=== PATIENT | female | born 1940 | race Caucasian/White ===

== ENCOUNTER 2017-12-24 13:46 | Emergency (ER) | payer OTHER, MEDICAID ==
[~2017-12-24] VITALS: Ht 162.6 cm; Wt 63.5 kg
[~2017-12-24 13:46] MED LIST: ADULT LOW DOSE81 MG PO; BENTYL10 MG PO; EXFORGE; GABAPENTIN 100100 MG; GLUCOPHAGE XR500 MG PO; HYZAAR 100-251 EACH PO; KLOR-CON 1010 MEQ PO; LEVAQUIN 500 M500 M2; LEVOTHROID; LOPRESSOR HCT1 EAC1 PO; LOVASTAT40; MACROBID 100 M100 M1 PO; MUCINEX TA600 MG/TA2 PO; NEXIUM; NORCO 5-325 TA1 EACH PO; NORFLEX100 MG PO; OXYBUTYNIN 5 MG5 M1; TOPROL XL100 MG PO; TRICOR48 MG PO; ULTRAM 50MG TAB50 MG PO; VITAMIN D1000 UNI1; ZOCOR 20 MG TAB20 M1; ZOFRAN ODT4 MG; ZOFRAN ODT4 MG PO
[2017-12-24 13:55] VITALS: BP 111/68
[2017-12-24 14:08] LABS: ABSOLUTE LYMPHOCYTES 1.3 thou/uL (0.8-5.3); ABSOLUTE MONOCYTES 0.3 thou/uL (0.0-1.2); ABSOLUTE NEUTROPHILS 6.1 thou/uL (1.6-8.1); BASOPHILS 0.4 %; EOSINOPHILS 0.6 %; HEMATOCRIT 41.5 % (37.0-47.0); HEMOGLOBIN 14.1 gm/dL (12.0-15.0); LYMPHOCYTES 16.2 %; MCH 31.2 pg (26.0-34.0); MCV 91.9 fL (80.0-100.0); MONOCYTES 4.3 %; MPV 8.9 fl. (7.2-11.1); NUCLEATED RBCS 0 /100WBC; PLATELET COUNT* 187 thou/uL (150-400); POLYS 78.5 %; RBC 4.52 mil/uL (4.20-5.00); RDW-CV 13.1 % (10.5-14.5); WBC 7.8 thou/uL (4.0-11.0)
[2017-12-24 14:15] LABS: ANION GAP 5 mmol/L (7-16); BUN 15 mg/dL (7-18); CALCIUM 9.2 mg/dL (8.5-10.1); CHLORIDE 103 mmol/L (98-107); CO2 29 mmol/L (21-32); CREATININE 1.1 mg/dL (0.6-1.3); GLUCOSE 235 mg/dL (70-99); POTASSIUM 4.1 mmol/L (3.5-5.1); SODIUM 137 mmol/L (136-145)
[2017-12-24 14:22] LABS: ALBUMIN 3.5 g/dL (3.4-5.0); ALKALINE PHOSPHATASE 133 U/L (46-116); LIPASE 134 U/L (73-393); SGOT 16 U/L (15-37); SGPT 23 U/L (30-65); TOTAL BILIRUBIN 0.6 mg/dL (<0.1-1.0); TOTAL PROTEIN 7.2 g/dL (6.4-8.2); TROPONIN-I LEVEL <0.06 ng/mL (<0.06)
[2017-12-24 15:16] LABS: URINE BILIRUBIN NEGATIVE (Negative); URINE BLOOD NEGATIVE (Negative); URINE CLARITY CLEAR; URINE COLOR YELLOW; URINE GLUCOSE-RANDOM NEGATIVE (Negative); URINE KETONES NEGATIVE (Negative); URINE LEUKOCYTES-REFLEX NEGATIVE (Negative); URINE NITRITE-REFLEX NEGATIVE (Negative); URINE PROTEIN NEGATIVE (Negative); URINE SPECIFIC GRAVITY 1.025 (1.005-1.030)
[2017-12-24 16:43] VITALS: BP 147/73
--- NOTE | 2017-12-24 16:43 | NUR ---
DR TAN REVIEWED PT'S HOME MEDS BEFORE DISCHARGE.
--- NOTE | 2017-12-26 13:30 | EKG ---
[place] [address] ELECTROCARDIOGRAM REPORT Name: KWADWOANY OLMEDO Room: [facility]#: [id number] Admission: 12/24/17 Attend Phys: Discharge: 12/24/17 Date of : 38 Report #: [id number] THIS REPORT FOR: //name// [facility] ED Test Date: 2017-12-24 Test Time: 13:52:05 Pat Name: ANY BURKETT Department: Room: Gender: F Natural Resources Instructor: Vivek MCLEOD : 1940 Requested By: Junior Hunt Order Number: [id number] MD: Julius Ceron Measurements Intervals [place] Rate: 74 P: 2 CT: 147 QRS: -67 QRSD: 103 T: QT: 463 QTc: 514 Interpretive Statements Sinus rhythm Left anterior fascicular block Abnormal R-wave progression, early transition Borderline repolarization abnormality Prolonged QT interval Compared to ECG 10/13/2015 19:59:36 Left anterior fascicular block now present Prolonged QT interval now present Right ventricular hypertrophy no longer present Myocardial infarct finding no longer present Electronically Signed On 12-26-2017 13:30:28 CDT by Julius Ceron [email or web address] <ELECTRONICALLY SIGNED> By: Julius Ceron MD, FAC 12/26/17 1330 1352 1352 Julius Ceron MD, [facility] /EPI
== END 2017-12-24 16:47 | disposition home or self-care (01) ==
LOC: M.ERS 13:46 → M.TBA-ER 15:22 → M.ERS 15:22
PROVIDERS: Emergency Medicine Emergency Medical Services
DX: I95.1 Orthostatic hypotension (principal); E11.9 Type 2 diabetes mellitus without complications; Z88.8 Allergy status to other drugs, medicaments and biological substances; Z88.6 Allergy status to analgesic agent; Z88.1 Allergy status to other antibiotic agents; Z91.041 Radiographic dye allergy status; Z88.5 Allergy status to narcotic agent; Z88.0 Allergy status to penicillin; Z91.013 Allergy to seafood; Z90.49 Acquired absence of other specified parts of digestive tract; Z90.710 Acquired absence of both cervix and uterus

== ENCOUNTER 2018-06-26 20:33 | Inpatient (IN) | payer OTHER, MEDICAID ==
[~2018-06-26] VITALS: Ht 162.6 cm; Wt 67.2 kg
[~2018-06-26 20:33] MED LIST changes: -GABAPENTIN 100100 MG; +GABAPENTIN 100100 MG PO; -LEVOTHROID; -NEXIUM; +NEXIUM40 MG PO; +SYNTHROID75 MCG PO; -VITAMIN D1000 UNI1; +VITAMIN D1000 UNI1 PO
[2018-06-26 20:37] VITALS: BP 192/97
[2018-06-26] MEDS ORDERED: NORVASC5 MG PO (20:46)
[2018-06-26] MEDS ORDERED: DOK100 M1 PO (20:46)
[2018-06-26] MEDS ORDERED: JANUVIA100 MG PO (20:46)
[2018-06-26] MEDS ORDERED: HYDRALAZINE 2525 MG PO (20:47)
[2018-06-26] MEDS ORDERED: CRESTOR20 MG PO (20:48)
[2018-06-26] MEDS ORDERED: PROAIR HFA8.5 GM INH (20:48)
[2018-06-26] MEDS ORDERED: FLUCONAZOLE 10100 MG PO (20:48)
[2018-06-26 20:58] LABS: ABSOLUTE BASOPHILS 0.1 thou/uL (0.0-0.2); ABSOLUTE EOSINOPHILS 0.1 thou/uL (0.0-0.7); ABSOLUTE LYMPHOCYTES 2.3 thou/uL (0.8-5.3); ABSOLUTE MONOCYTES 0.6 thou/uL (0.0-1.2); BASOPHILS 0.7 %; EOSINOPHILS 0.4 %; HEMATOCRIT 44.3 % (37.0-47.0); HEMOGLOBIN 14.5 gm/dL (12.0-15.0); MCH 29.4 pg (26.0-34.0); MCHC 32.7 g/dL (28.0-37.0); MCV 89.8 fL (80.0-100.0); MONOCYTES 5.1 %; MPV 8.8 fl. (7.2-11.1); NUCLEATED RBCS 0 /100WBC; PLATELET COUNT* 255 thou/uL (150-400); POLYS 74.8 %; RBC 4.94 mil/uL (4.20-5.00); RDW-CV 13.5 % (10.5-14.5); WBC 12.1 thou/uL (4.0-11.0)
[2018-06-26 21:05] LABS: APTT 19.6 Seconds (25.0-31.3); PROTIME 9.9 Seconds (9.20-11.50)
[2018-06-26 21:22] LABS: ALBUMIN 3.8 g/dL (3.4-5.0); CALCIUM 10.4 mg/dL (8.5-10.1); CK-MB MASS 0.9 ng/mL (<0.5-3.6); MAGNESIUM 1.6 mg/dL (1.8-2.4); POTASSIUM 4.6 mmol/L (3.5-5.1); TOTAL BILIRUBIN 0.3 mg/dL (<0.1-1.0); TOTAL PROTEIN 7.7 g/dL (6.4-8.2); TROPONIN-I LEVEL 0.06 ng/mL (<0.06)
--- NOTE | 2018-06-26 22:48 | NUR ---
REPORT TAKEN FROM DEMOND, WAITING FOR PATIENT'S ARRIVAL.
[2018-06-26 22:50] VITALS: BP 197/95
[2018-06-26 23:00] VITALS: BP 197/100
[2018-06-27] VITALS (7 sets, daily range): BP systolic 142–171; BP diastolic 59–86
[2018-06-27] MEDS ORDERED: ADVAIR HFA 230M12 GM INH ×2 (00:54)
--- NOTE | 2018-06-27 04:35 | NUR ---
PATIENT RESTED IN BED, NO ACUTE CHANGES. PATIENT DENIES PAIN BUT STATES "I HAVE DISCOMFORT NOT PAIN.". PATIENT IS NOT SHOWING SIGNS OF DISTRESS. FALL PRECAUTIONS IN PLACE, CALL LIGHT WITH IN REACH, HOURLY ROUNDING OBSERVED, BED ALARM ON.
--- NOTE | 2018-06-27 11:19 | NUR ---
MET WITH PT TO DISCUSS HOME SITUATION/DC PLANNING. PT'S NIECE/VIKTORIYA CARMEN IN ROOM ALSO. 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 SHE IS THERE 3.5HR/DAYK-7 DAYS/WEEK. 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 VIKTORIYA ASSISTS WITH LUGGAGE MAKER, SHOPPING, ETC. PT USES WALKER OR CANE AND SHOWER SEAT. SHE HAS NOT HAD HH BUT WOULD LIKE TO HAVE IT AT DC. DISCUSSED OPTIONS AND CHOSE [facility]. PT FOLLOWS WITH DR WESTBROOK IN [place]. GAVE PT ED AND INFO ON DPOA. SHE WILL DISCUSS WITH FAMILY. CM TO FOLLOW
--- NOTE | 2018-06-27 17:08 | 2DMMODE ---
[place] [address] 2 D/M-MODE ECHOCARDIOGRAM Name: ANY BURKETT Room: [address] IN [facility]#: [id number] Admission: 06/26/18 Attend Phys: Dmitry Galvez Discharge: Date of : 38 Date of Service: 06/27/18 1708 Report #: [id number] THIS REPORT FOR: //name// APPROVED REPORT Study performed: 06/27/2018 11:23:13 EXAM: Comprehensive 2D, Doppler, and color-flow Echocardiogram Patient Location: In-Patient Room #: [facility] BSA: 1.70 HR: 77 bpm BP: 161/85 mmHg Other Information Study Quality: Good Indications Chest Pain 2D Dimensions IVSd: 11.05 (7-11mm) LVOT Diam: 20.18 (18-24mm) LVDd: 42.06 mm PWd: 9.92 (7-11mm) Ascending Ao: 29.95 (22-36mm) LVDs: 24.17 (25-40mm) Aortic Root: 27.92 mm Volumes Left Atrial Volume (Systole) LA ESV Index: 15.70 mL/m2 Aortic Valve AoV Peak Ney.: 1.36 m/s AO Peak Gr.: 7.36 mmHg LVOT Max P.69 mmHg AO Mean Gr.: 4.15 mmHg LVOT Mean P.45 mmHg LVOT Max V: 1.08 m/s AO V2 VTI: 29.70 cm LVOT Mean V: 0.72 m/s MOSHE (VTI): 2.25 cm2 LVOT V1 VTI: 20.86 cm Mitral Valve E/A Ratio: 0.64 MV Decel. Time: 248.63 ms MV E Max Ney.: 0.63 m/s MV PHT: 72.10 [place] [address] 2 D/M-MODE ECHOCARDIOGRAM Name: KWADWO,ANYKimo OLMEOD Room: [address] IN .R.#: [id number] Admission: 06/26/18 Attend Phys: Dmitry Galvez Discharge: Date of : 38 Date of Service: 06/27/18 1708 Report #: [id number] MVA (PHT): 3.05 cm2 TDI E/Lateral E': 7.88 E/Medial E': 9.00 Medial E' Ney.: 0.07 m/s Lateral E' Ney.: 0.08 m/s Pulmonary Valve PV Peak Ney.: 1.07 m/s PV Peak Gr.: 4.60 mmHg Tricuspid Valve RAP Estimate: 5.00 mmHg TR Peak Gr.: 18.02 mmHg RVSP: 23.02 mmHg PA Pressure: 23.02 mmHg Left Ventricle The left ventricle is normal size. There is normal LV segmental wall motion. There is normal left ventricular wall thickness. Left ventricular systolic function is normal. The left ventricular ejection fraction is within the normal range. LVEF is 60%. Grade I - abnormal relaxation pattern. Right Ventricle The right ventricle is normal size. The right ventricular systolic function is normal. Atria The left atrium size is normal. The right atrium size is normal. Aortic Valve Aortic valve is mildly calcified. No aortic regurgitation is present. There is no aortic valvular stenosis. Mitral Valve The mitral valve is normal in structure. Mild mitral regurgitation. No evidence of mitral valve stenosis. Tricuspid Valve The tricuspid valve is normal in structure. Mild tricuspid regurgitation. Pulmonic Valve The pulmonary valve is normal in structure. There is no pulmonic valvular [place] [address] 2 D/M-MODE ECHOCARDIOGRAM Name: ANY BURKETT Room: [address] [place] [facility]#: [id number] Admission: 06/26/18 Attend Phys: Dmitry Galvez Discharge: Date of : 38 Date of Service: 06/27/18 1708 Report #: [id number] Great Vessels The aortic root is normal in size. IVC is normal in size and collapses >50% with inspiration. Pericardium There is no pericardial effusion. <Conclusion> The left ventricle is normal size. There is normal left ventricular wall thickness. Left ventricular systolic function is normal. The left ventricular ejection fraction is within the normal range. LVEF is 60%. Grade I - abnormal relaxation pattern. The right ventricle is normal size. The left atrium size is normal. Aortic valve is mildly calcified. No aortic regurgitation is present. There is no aortic valvular stenosis. The mitral valve is normal in structure. Mild mitral regurgitation. The tricuspid valve is normal in structure. IVC is normal in size and collapses >50% with inspiration. There is no pericardial effusion. There is normal LV segmental wall motion. <ELECTRONICALLY SIGNED> By: Dimitry Gupta MD, FACC 06/27/181707 07 07 Dimitry Gupta MD, FACC /INF
--- NOTE | 2018-06-27 18:34 | CARDNUC ---
[place] [address] CARDIAC NUCLEAR IMAGING REPORT Name: NESSA BURKETT Room: [address] IN [facility]#: [id number] Admission: 06/26/18 Attend Phys: Dmitry Galvez Discharge: Date of : 38 Date of Service: 06/27/18 1834 Report #: [id number] THIS REPORT FOR: //name// APPROVED REPORT Study performed: 06/27/2018 10:10:00 Indication: Chest pain Patient Location: In-Patient Room #: [facility] Stress Tech: Ольга Patel Stress Nurse: Nessa Salcedo RN Ht: 5 ft 4 in Wt: 143 lbs BSA: 1.70 m2 BMI: 24.54 Medical History Medical History: hyperlipidemia, hypertension, pvd Medications: atorvastatin, amlodipine, asa 81, hctz, losartan Allergies: zolpidem, fexofenarine, pcn, sulfa, morphine, codiene, iodine Cardiac Risk Factors: age, hyperlipidemia, hypertension, pvd, diabetes Exercise History: Sedentary Resting Data Rest SPECT myocardial perfusion imaging was performed in supine position 45 minutes following the intravenous injection of 10.9 mCi of Tc-99m Sestamibi. Time of rest injection: 1440 Date: 06/27/2018 The images were gated to evaluate regional wall motion and calculate left ventricular ejection fraction. Administration Route: IV Administration Site: Left Hand Pharmacologic Stress Pharmacologic stress test was performed by injecting Regadenoson 0.4 mg IV push over 10-15 seconds immediately followed by the intravenous injection of 36 mCi of Tc-99m Sestamibi. Time of stress injection: 1615 Date: 06/27/2018 Administration Route: IV Administration Site: Left Hand Gated Stress SPECT was performed 45 minutes [place] [address] CARDIAC NUCLEAR IMAGING REPORT Name: NESSA BURKETT Room: [address] IN ..#: [id number] Admission: 06/26/18 Attend Phys: Dmitry Galvez Discharge: Date of : 38 Date of Service: 06/27/18 1834 Report #: [id number] The images were gated to evaluate regional wall motion and calculate left ventricular ejection fraction. Stress Test Details Stress Test: Pharmacologic stress testing performed using 0.4 mg of regadenoson per 5 mL given IV over 10 seconds. Reason for pharmacologic stress test: physical limitation. HR Max Heart Rate (APMHR): 142 bpm Resting HR: 101 bpm Target HR (85% APMHR): 120 bpm Max HR Achieved: 132 bpm % of APMHR: 92 Recovery HR: 120 bpm BP Resting BP: 157/54 mmHg Max BP: 172/67 mmHg Recovery BP: 157/77 mmHg ECG Resting ECG: Sinus Tachycardia Stress ECG: Sinus Tachycardia ST Change: None Arrhythmia: None Recovery ECG: Sinus Tachycardia Recovery ST Change: None Recovery Arrhythmia: None Clinical Reason for Termination: Completed protocol Exercise duration: 0 min sec Exercise capacity: 1 METs The patient tolerated Lexiscan infusion without significant symptoms. Nurse Comments pt fall risk. tolerated procedure well Stress ECG Conclusion The baseline 12-lead EKG shows sinus tachycardia without significant ST or T wave abnormality. EKGs obtained during and post Lexiscan infusion show sinus tachycardia with no significant ST or T wave changes when compared baseline. There were no stress-induced arrhythmias. Study Quality Study: [place] [address] CARDIAC NUCLEAR IMAGING REPORT Name: NESSA BURKETT Room: [address] IN [facility].#: [id number] Admission: 06/26/18 Attend Phys: Dmitry Galvez Discharge: Date of : 38 Date of Service: 06/27/18 1834 Report #: [id number] Study Data At rest, the left ventricular ejection fraction was 88%.. Post stress, the left ventricular ejection was 85%.. Perfusion There is photopenia noted in the basal portion the inferior wall that is more pronounced on rest and stress images. Wall motion in this region does appear diminished possibly signifying prior infarct. There is no evidence of stress-induced ischemia. Wall Motion Global LV systolic function is normal. There is a repeat of hypokinesis in the basal portion of the inferior wall. There is also a septal wall motion abnormality of uncertain significance. Nuclear Conclusion ECG Findings: negative for ischemia Clinical Findings: negative for ischemia Nuclear Findings: negative for ischemia Exercise Capacity: not assessed Left Ventricular Function: preserved Myocardial perfusion images show no defect to suggest ischemia. There is photopenia in the basal portion the inferior wall with associated wall motion abnormality suggesting the possibility of prior inferior wall infarct. Global LV systolic function is well-preserved. This is not a high risk study. <Conclusion> The baseline 12-lead EKG shows sinus tachycardia without significant ST or T wave abnormality. EKGs obtained during and post Lexiscan infusion show sinus tachycardia with no significant ST or T wave changes when compared baseline. There were no stress-induced arrhythmias. <ELECTRONICALLY SIGNED> By: Lamont Magallanes MD, FACC 06/27/18 1834 183 183 Lamont Magallanes MD, FACC /INF
--- NOTE | 2018-06-27 18:46 | EKG ---
[place] [address] ELECTROCARDIOGRAM REPORT Name: KWADWOANY SHARA Room: [address] ADM IN .R.#: [id number] Admission: 06/26/18 Attend Phys: Keith Mike Discharge: Date of : 38 Report #: [id number] THIS REPORT FOR: //name// [facility] ED Test Date: 2018-06-26 Test Time: 20:39:10 Pat Name: ANY BURKETT Department: Room: [facility] Gender: F Prison Guard Supervisor: : 1940 Requested By: John Pitts Order Number: [id number] MD: Lamont Magallanes Measurements Intervals [place] Rate: 83 P: 12 SD: 132 QRS: -54 QRSD: 101 T: 35 QT: 467 QTc: 549 Interpretive Statements Sinus rhythm Left anterior fascicular block Abnormal R-wave progression, early transition Borderline repolarization abnormality Prolonged QT interval Baseline wander in lead(s) II,III,aVR,aVL,aVF,V6 Compared to ECG 12/24/2017 13:52:05 No significant changes Electronically Signed On 06-27-2018 18:45:59 TREE PULLER by Lamont Magallanes [email or web address] <ELECTRONICALLY SIGNED> By: Lamont Magallanes MD, FAC 06/27/18 1845 38 38 Lamont Magallanes MD, [facility] /EPI
--- NOTE | 2018-06-27 18:47 | EKG ---
[place] [address] ELECTROCARDIOGRAM REPORT Name: KWADWOANY SHARA Room: [address] ADM IN M.R.#: [id number] Admission: 06/26/18 Attend Phys: Keith Mike Discharge: Date of : 38 Report #: [id number] THIS REPORT FOR: //name// [facility] Test Date: 2018-06-27 Test Time: 02:53:30 Pat Name: ANY BURKETT Department: Room: [address] Gender: F Radio Tower Technician: : 1940 Requested By: Junior Hunt Order Number: [id number] MD: Lamont Magallanes Measurements Intervals [place] Rate: 85 P: 9 ME: 134 QRS: -55 QRSD: 101 T: 6 QT: 412 QTc: 490 Interpretive Statements Sinus rhythm Abnormal R-wave progression, late transition Probable left ventricular hypertrophy Inferior infarct, old Compared to ECG 12/24/2017 13:52:05 Myocardial infarct finding now present Left anterior fascicular block no longer present Prolonged QT interval no longer present Electronically Signed On 06-27-2018 18:46:59 ENGINEERING SPECIALIST TECHNICIAN by Lamont Magallanes [email or web address] <ELECTRONICALLY SIGNED> By: Lamont Magallanes MD, [facility] 06/27/18 1846 2 2 Lamont Magallanes MD, [facility] /EPI
--- NOTE | 2018-06-27 18:48 | EKG ---
[place] [address] ELECTROCARDIOGRAM REPORT Name: KWADWOANY SHARA Room: [address] ADM IN M.R.#: [id number] Admission: 06/26/18 Attend Phys: Keith Mike Discharge: Date of : 38 Report #: [id number] THIS REPORT FOR: //name// [facility] Test Date: 2018-06-27 Test Time: 08:44:12 Pat Name: ANY BURKETT Department: Room: [address] Gender: F Chip Silo Tender: : 1940 Requested By: Junior Hunt Order Number: [id number] Ibeth MD: Lamont Magallanes Measurements Intervals [place] Rate: 83 P: 11 [place]: 141 QRS: -62 QRSD: 102 T: 10 QT: 425 QTc: 500 Interpretive Statements Sinus rhythm Abnormal R-wave progression, late transition Inferior infarct, old Compared to ECG 12/24/2017 13:52:05 Myocardial infarct finding now present Left anterior fascicular block no longer present Prolonged QT interval no longer present Electronically Signed On 06-27-2018 18:48:15 TOPLINE BEADING MACHINE TENDER by Lamont Magallanes [email or web address] <ELECTRONICALLY SIGNED> By: Lamont Magallanes MD, FAC 06/27/18 1848 0844 0844 Lamont Magallanes MD, [facility] /EPI
[2018-06-27 21:56] LABS: URINE BILIRUBIN NEGATIVE (Negative); URINE BLOOD NEGATIVE (Negative); URINE CLARITY CLEAR; URINE COLOR YELLOW; URINE GLUCOSE-RANDOM NEGATIVE (Negative); URINE KETONES NEGATIVE (Negative); URINE LEUKOCYTES-REFLEX 1+ (Negative); URINE NITRITE-REFLEX NEGATIVE (Negative); URINE PROTEIN NEGATIVE (Negative); URINE UROBILINOGEN 0.2 E.U./dl (0.2-1.0)
[2018-06-27 22:07] LABS: CASTS None Seen /LPF (None Seen); CRYSTALS None Seen /LPF (None Seen); MUCUS None Seen strn/LPF (None Seen); SQUAMOUS 0-3 Few /LPF (0-3); WBC CLUMPS Few (None Seen)
[2018-06-27 22:08] LABS: URINE RBC None Seen /HPF (0-2); URINE WBC-REFLEX 6-15 Few /HPF (0-5)
[2018-06-28] VITALS: BP 137/87
[2018-06-28 04:00] VITALS: BP 136/80
--- NOTE | 2018-06-28 04:51 | NUR ---
ASSUMED CARE OF PT AFTER REPORT AT 1930. PT A&OX4. VSS. PHYSICAL ASSESSMENT COMPLETED AND CHARTED. PT ON RA WITH 95% O2 SAT. PT TRACING SR/ST ON TELE. PT UP STANDBY TO RESTROOM. PT COMPLAINED OF GENERALIZED DISCOMFORT-MEDS GIVEN PER MAR. PT RESTED WELL ON BED. DENIES SOA OR CHEST PAIN. HOURLY ROUNDING OBSERVED. CALL LIGHT WITHIN REACH. BED IN LOW POSITION.
[2018-06-28 05:11] LABS: HEMATOCRIT 39.3 % (37.0-47.0); HEMOGLOBIN 13.2 gm/dL (12.0-15.0); MCHC 33.6 g/dL (28.0-37.0); MCV 89.4 fL (80.0-100.0); MPV 8.9 fl. (7.2-11.1); RBC 4.4 mil/uL (4.20-5.00); RDW-CV 13.5 % (10.5-14.5); WBC 11.7 thou/uL (4.0-11.0)
[2018-06-28 05:19] LABS: ANION GAP 8 mmol/L (7-16); BUN 11 mg/dL (7-18); CHLORIDE 105 mmol/L (98-107); CHOLESTEROL 110 mg/dL (<200); CO2 28 mmol/L (21-32); CREATININE 0.8 mg/dL (0.6-1.3); GLUCOSE 157 mg/dL (70-99); HDL CHOLESTEROL 44 mg/dL (>40); LDL CHOLESTEROL 54 mg/dL (<100); MAGNESIUM 1.9 mg/dL (1.8-2.4); POTASSIUM 3.8 mmol/L (3.5-5.1); SODIUM 141 mmol/L (136-145); TC:HDL 2.5 Ratio (Not establshd); TRIGLYCERIDE 62 mg/dL (<150); VLDL 12 mg/dL (<40)
[2018-06-28 05:20] LABS: SERUM ASSESSMENT CLEAR
[2018-06-28 07:30] VITALS: BP 135/83
--- NOTE | 2018-06-28 10:08 | NUR ---
CONTINUE TO FOLLOW, MET WITH PT. SHE NOW STATES THAT SHE HAS A DPOA AND THINKS IT IS ON FILE AT [facility] AND HER DTR/JOHAN MEMBRENO IS HER DPOA. WILL ASK STOPPER MAKER TO TRY TO OBTAIN. PT STILL WANTS TO HAVE HH AT DC WITH [facility]. ANTICIPATE DC SOON.
[2018-06-28] MEDS ORDERED: CARAFATE 1 GM TA1 G1 PO (11:45)
[2018-06-28 12:05] VITALS: BP 155/80
--- NOTE | 2018-06-28 12:17 | NUR ---
RECEIVED PT CARE 0700. SHE IS ALERT AND ORIENTED X4. VSS. SALES SUPPORT ASSOCIATE TRACING SR. SHE DENIES ANY SOA. O2 SAT 96% ON ROOM AIR. UP STANDBY ASSIST IN ROOM WITH BATHROOM PRIVILEDGES. AMBULATES WITH A WALKER. UP AMBULATING IN HALLWAY THIS AM. GAIT IS STEADY. AM ASSESSMENT CHARTED. MEDS GIVEN PER MAR. PLANNING FOR DC TO HOME THIS AFTERNOON. PATIENT UPDATED ON PLAN OF CARE. WILL CONTINUE TO MONITOR.
--- NOTE | 2018-06-28 14:52 | NUR ---
RECEIVED DISCHARGE ORDERS PER DR THAKKAR. CV OK WITH DISCHARGE TODAY. IV DISCONTINUED. CUSTODIAL ENGINEER REMOVED. EDUCATED THE PT ON F/U APPT WITH GI AND CARDIOLOGY. CONTACT INFORMATION GIVEN FOR DR COLLADO AND DR RUIZ'S OFFICES. EDUCATED ON SIGNS AND SYMPTOMS TO REPORT AND WATCH FOR. HOME HEALTH SETUP PER CASE MANAGEMENT. ALL HER BELONGINGS ARE PACKED AND LEAVING WITH THE PATIENT. NO QUESTIONS OR CONCERNS AT DISCHARGE. SHE IS LEAVING VIA WHEELCHAIR ACCOMPANIED BY NURSING STAFF AND HER POPULATION HEALTH COACH.
[2018-06-28 21:13] LABS: GLYCOHEMOGLOBIN (HGB A1C) 8.2 % (4.8-5.6)
== END 2018-06-28 14:56 | disposition home health service (06) | DRG 392 ==
LOC: M.ERS 20:33 → M.TBA-ER 21:40 → M.2W 21:40
PROVIDERS: Family Medicine; ADMIT Internal Medicine
DX: K21.9 Gastro-esophageal reflux disease without esophagitis (principal); J45.909 Unspecified asthma, uncomplicated; J44.9 Chronic obstructive pulmonary disease, unspecified; N18.3 Chronic kidney disease, stage 3 (moderate); K59.00 Constipation, unspecified; E78.5 Hyperlipidemia, unspecified; E11.22 Type 2 diabetes mellitus with diabetic chronic kidney disease; I12.9 Hypertensive chronic kidney disease with stage 1 through stage 4 chronic kidney disease, or unspecified chronic kidney disease; Z90.710 Acquired absence of both cervix and uterus; Z90.49 Acquired absence of other specified parts of digestive tract; Z88.2 Allergy status to sulfonamides; Z88.8 Allergy status to other drugs, medicaments and biological substances; Z88.6 Allergy status to analgesic agent; Z91.041 Radiographic dye allergy status; Z88.0 Allergy status to penicillin; Z91.013 Allergy to seafood; Z80.0 Family history of malignant neoplasm of digestive organs; Z79.82 Long term (current) use of aspirin; Z79.899 Other long term (current) drug therapy

== ENCOUNTER 2018-07-02 12:29 | Inpatient (IN) | payer OTHER, MEDICAID ==
[~2018-07-02] VITALS: Ht 162.6 cm; Wt 63.5 kg
--- NOTE | ~2018-07-02 | EEG ---
[address] [address] EEG STUDY REPORT Name: ANY BURKETT Room: [address] IN M.R.#: [id number] Admission: 07/02/18 Attend Phys: Andrew Castillo MD Discharge: Date of : 38 Report #: [id number] THIS REPORT FOR: //name// CC: Logan Vela Andrew Castillo DATE OF SERVICE: 07/03/2018 This patient is being evaluated for dizziness. TECHNIQUE: EEG was done by placing the electrode by standard 10-20 system of electrode placement. Both referential and sequential montages were used for recording. Background activity in this patient's EEG is about 10 Hz and 30 microvolt. The patient went to sleep that is associated with bilaterally symmetrical sleep spindle and vertex sharp wave. Photic stimulation is unremarkable. Throughout the record, no active epileptiform activity was noticed. IMPRESSION: This patient's EEG is unremarkable. Thank you very much for this referral. By: 0910 0928Kenton Cook MD /nt
--- NOTE | ~2018-07-02 | CON ---
[address] [address] CONSULTATION Name: ANY BURKETT Room: [address] IN M.R.#: [id number] Admission: 07/02/18 Attend Phys: Andrew Castillo MD Discharge: Date of : 38 Report #: [id number] THIS REPORT FOR: //name// CC: Logan Castillo DATE OF SERVICE: 07/03/2018 HISTORY OF PRESENT ILLNESS: This is a 77-year-old female patient who was evaluated by me for any neurological etiology for the patient's dizziness. The patient's history is not very clear. It looks like it is going on for some time. She has fallen down and has hit her head. When I asked her whether she passed out and lost the balance, she indicates both of it happened. Dizziness is constant. She does not tell me whether it is worse in any situation, but looks like it is a chronic process. She indicates she also developed diplopia with it few days ago, she does not know when exactly that happened. REVIEW OF SYSTEMS: Her 14-point review of system was carried out. She has multiple problems. She has respiratory problem. She said she has C-spine problem. She had two surgeries. They were done in [facility] in [place]. She said she has no metal. She does have some history of esophagitis and the blood pressure has been either high or low. She has a history of knee problem, she says it is mqog-dm-bvlr. She has a history of diabetes. Her blood sugar was running pretty high according to her. This was her relevant 14-point review of system. She does have Ophthalmological issues now, but is not new. She denies any ENT problems. She does have cardiac problems in the past. She does not feel she is nauseous at the moment. She denies any symptoms, does not have any constitutional, dermatological, hematological, psychiatric, throat, allergic symptom, which are new. PAST MEDICAL HISTORY: Positive for diabetes. FAMILY HISTORY: Negative for any early age stroke. SOCIAL HISTORY: She denies the use of alcohol or tobacco. PHYSICAL EXAMINATION: Indicate she is alert, responsive, able to follow simple commands. She knows what month it is. Her speech, concentration, fund of knowledge and memory is at her baseline. Cranial nerve examination 2-12 looks unremarkable. She has symmetrical strength, sensation, reflexes and tone in all 4 extremities. There is no meningeal sign. There is no carotid bruit. There is no papilledema. Pulses are nicely palpable. She has no edema, cyanosis or jaundice. Cardiac examination is unremarkable. No respiratory difficulty or rhonchi was noticed. Blood pressure is 151/84, respiration is 20, pulse is 104, temperature [place] 98[place] [address] CONSULTATION Name: ANY BURKETT Room: [address] [place] [facility]#: [id number] Admission: 07/02/18 Attend Phys: Andrew Castillo MD Discharge: Date of : 38 Report #: [id number] LABORATORY DATA: White count is 7.8. Sodium is 141. She had an MRI of the brain, which does not show any abnormality. IMPRESSION: Pretty difficult to form in this patient. She has multiple problems including diabetes, which can cause diabetic autonomic neuropathy and she has trouble with the blood pressure and that is probably the etiology of her symptoms. She has pretty significant pathology in the neck and we will go ahead and check that to make sure there is no pathology there and I will get an EEG done. RECOMMENDATIONS: We will look at this workup and then decide if any further neurological workup needs to be done. I discussed about all the testing with the patient and discussed our plan and she is agreeable with this plan. If all the workup is unremarkable, then I think we should continue to concentrate on systemic causes, which are much more likely than neurological causes. By: 1155 1227Kenton Cook MD /castro
[~2018-07-02 12:29] MED LIST changes: +ADVAIR HFA 230M12 GM INH; +CARAFATE 1 GM TA1 G1 PO; +CRESTOR20 MG PO; +DOK100 M1 PO; +FLUCONAZOLE 10100 MG PO; +HYDRALAZINE 2525 MG PO; +JANUVIA100 MG PO; +NORVASC5 MG PO; +PROAIR HFA8.5 GM INH
[2018-07-02 12:44] VITALS: BP 185/89
[2018-07-02 12:45] VITALS: BP 185/89
[2018-07-02] MEDS ORDERED: DIFLUCAN200 MG PO (12:54)
[2018-07-02] MEDS ORDERED: LOSARTAN POTASS50 MG PO (12:54)
[2018-07-02 13:18] LABS: ABSOLUTE LYMPHOCYTES 1.5 thou/uL (0.8-5.3); ABSOLUTE MONOCYTES 0.4 thou/uL (0.0-1.2); ABSOLUTE NEUTROPHILS 6.3 thou/uL (1.6-8.1); BASOPHILS 0.6 %; EOSINOPHILS 0.4 %; HEMATOCRIT 41.8 % (37.0-47.0); LYMPHOCYTES 17.8 %; MCHC 33.4 g/dL (28.0-37.0); MONOCYTES 4.5 %; MPV 8.8 fl. (7.2-11.1); NUCLEATED RBCS 0 /100WBC; PLATELET COUNT* 215 thou/uL (150-400); POLYS 76.7 %; RBC 4.65 mil/uL (4.20-5.00); RDW-CV 13.5 % (10.5-14.5); WBC 8.2 thou/uL (4.0-11.0)
[2018-07-02 13:22] LABS: ANION GAP 9 mmol/L (7-16); BUN 22 mg/dL (7-18); CALCIUM 9.4 mg/dL (8.5-10.1); CHLORIDE 104 mmol/L (98-107); CO2 28 mmol/L (21-32); CREATININE 0.9 mg/dL (0.6-1.3); GLUCOSE 273 mg/dL (70-99); POTASSIUM 3.4 mmol/L (3.5-5.1); SODIUM 141 mmol/L (136-145)
[2018-07-02 13:23] LABS: APTT 19.9 Seconds (25.0-31.3); PROTIME 10.2 Seconds (9.20-11.50)
[2018-07-02 13:35] LABS: ALBUMIN 3.5 g/dL (3.4-5.0); ALKALINE PHOSPHATASE 88 U/L (46-116); NT-PRO BRAIN NAT PEPTIDE 37 pg/mL (<300); SGOT 10 U/L (15-37); SGPT 20 U/L (30-65); TOTAL BILIRUBIN 0.4 mg/dL (<0.1-1.0); TOTAL PROTEIN 7.3 g/dL (6.4-8.2); TROPONIN-I LEVEL <0.06 ng/mL (<0.06)
[2018-07-02 15:29] LABS: URINE BILIRUBIN NEGATIVE (Negative); URINE BLOOD NEGATIVE (Negative); URINE CLARITY CLEAR; URINE COLOR YELLOW; URINE GLUCOSE-RANDOM 2+ (Negative); URINE KETONES NEGATIVE (Negative); URINE LEUKOCYTES-REFLEX NEGATIVE (Negative); URINE NITRITE-REFLEX NEGATIVE (Negative); URINE PROTEIN NEGATIVE (Negative); URINE SPECIFIC GRAVITY >= 1.030 (1.005-1.030); URINE UROBILINOGEN 0.2 E.U./dl (0.2-1.0)
--- NOTE | 2018-07-02 15:40 | EKG ---
[place] [address] ELECTROCARDIOGRAM REPORT Name: KWADWO,ANY SHAAR Room: [place] [address] ADM IN .R.#: [id number] Admission: 07/02/18 Attend Phys: Andrew Castillo MD Discharge: Date of : 38 Report #: [id number] THIS REPORT FOR: //name// [facility] ED Test Date: 2018-07-02 Test Time: 12:53:08 Pat Name: ANY BURKETT Department: Room: [facility] Gender: F Accounting Professor: HA : 1940 Requested By: John Pitts Order Number: [id number] MD: Dimitry Gupta Measurements Intervals [place] Rate: 96 P: 33 MT: 134 QRS: -70 QRSD: 106 T: 56 QT: 374 QTc: 473 Interpretive Statements Sinus rhythm Left anterior fascicular block Abnormal R-wave progression Nonspecific repol abnormality, lateral leads Compared to ECG 06/27/2018 08:44:12 Left anterior fascicular block now present Early repolarization now present Myocardial infarct finding no longer present Electronically Signed On 07-02-2018 15:39:54 SPORTS MANAGEMENT [employer] by Dimitry Gupta [email or web address] <ELECTRONICALLY SIGNED> By: Dimitry Gupta MD, FACC 07/02/18 1539 1253 1253 Dimitry Gupta MD, FAC /EPI
[2018-07-02 15:57] VITALS: BP 125/103
[2018-07-02 18:26] LABS: AMP/METHAMP Negative (Negative); BARBITURATES Negative (Negative); BENZODIAZEPINES Negative (Negative); COCAINE Negative (Negative); METHADONE Negative (Negative); OPIATES Negative (Negative); PCP Negative (Negative); THC Negative (Negative)
[2018-07-02 19:30] VITALS: BP 153/79
[2018-07-03] VITALS: BP 147/85
[2018-07-03 04:00] VITALS: BP 133/73
[2018-07-03 05:17] LABS: ABSOLUTE LYMPHOCYTES 1.7 thou/uL (0.8-5.3); ABSOLUTE MONOCYTES 0.5 thou/uL (0.0-1.2); ABSOLUTE NEUTROPHILS 5.5 thou/uL (1.6-8.1); BASOPHILS 0.3 %; EOSINOPHILS 0.5 %; HEMATOCRIT 39.6 % (37.0-47.0); HEMOGLOBIN 13.2 gm/dL (12.0-15.0); LYMPHOCYTES 22.3 %; MCH 29.9 pg (26.0-34.0); MCHC 33.5 g/dL (28.0-37.0); MCV 89.5 fL (80.0-100.0); MONOCYTES 6.2 %; MPV 8.6 fl. (7.2-11.1); NUCLEATED RBCS 0 /100WBC; PLATELET COUNT* 197 thou/uL (150-400); POLYS 70.7 %; RBC 4.42 mil/uL (4.20-5.00); RDW-CV 13.6 % (10.5-14.5); WBC 7.8 thou/uL (4.0-11.0)
[2018-07-03 05:22] LABS: CALCIUM 8.9 mg/dL (8.5-10.1); CREATININE 0.8 mg/dL (0.6-1.3); MAGNESIUM 2.1 mg/dL (1.8-2.4); POTASSIUM 3.7 mmol/L (3.5-5.1)
[2018-07-03 08:16] VITALS: BP 151/84
[2018-07-03 12:00] VITALS: BP 150/92
[2018-07-03 16:00] VITALS: BP 161/83
[2018-07-03 19:30] VITALS: BP 141/74
[2018-07-04] VITALS: BP 127/81
[2018-07-04 03:56] VITALS: BP 145/85
[2018-07-04 08:00] VITALS: BP 139/93
[2018-07-04 11:48] VITALS: BP 152/96
[2018-07-04] MEDS ORDERED: LEVEMIR SUBQ (14:46)
[2018-07-04 14:59] VITALS: BP 152/96
== END 2018-07-04 15:45 | disposition home health service (06) | DRG 123 ==
LOC: M.ERS 12:29 → M.TBA-ER 14:31 → M.2W 14:31
PROVIDERS: Family Medicine; ADMIT Family Medicine
DX: H53.2 Diplopia (principal); I16.0 Hypertensive urgency; I12.9 Hypertensive chronic kidney disease with stage 1 through stage 4 chronic kidney disease, or unspecified chronic kidney disease; N18.3 Chronic kidney disease, stage 3 (moderate); E11.65 Type 2 diabetes mellitus with hyperglycemia; E78.5 Hyperlipidemia, unspecified; J44.9 Chronic obstructive pulmonary disease, unspecified; E11.22 Type 2 diabetes mellitus with diabetic chronic kidney disease; E11.43 Type 2 diabetes mellitus with diabetic autonomic (poly)neuropathy; Z53.29 Procedure and treatment not carried out because of patient's decision for other reasons; Z90.49 Acquired absence of other specified parts of digestive tract; Z90.710 Acquired absence of both cervix and uterus; Z79.82 Long term (current) use of aspirin; Z79.84 Long term (current) use of oral hypoglycemic drugs; Z79.899 Other long term (current) drug therapy; Z88.2 Allergy status to sulfonamides; Z88.6 Allergy status to analgesic agent; Z88.0 Allergy status to penicillin; Z88.8 Allergy status to other drugs, medicaments and biological substances; Z91.013 Allergy to seafood; Z80.0 Family history of malignant neoplasm of digestive organs; Z91.14 Patient's other noncompliance with medication regimen

== ENCOUNTER 2018-08-25 11:47 | Inpatient (IN) | payer OTHER, MEDICAID ==
[~2018-08-25] VITALS: Ht 162.6 cm; Wt 64.9 kg
[2018-08-25 11:47] VITALS: BP 118/55
[~2018-08-25 11:47] MED LIST changes: +DIFLUCAN200 MG PO; +LEVEMIR SUBQ; +LOSARTAN POTASS50 MG PO
[2018-08-25] MEDS ORDERED: LEVEMIR SUBQ (11:52)
[2018-08-25] MEDS ORDERED: CARAFATE 1 GM TA1 G1 PO (12:05)
[2018-08-25] MEDS ORDERED: EFFER-K 10 MEQ10 ME1 PO (12:06)
[2018-08-25] MEDS ORDERED: JANUVIA100 MG PO (12:06)
[2018-08-25] MEDS ORDERED: NORVASC5 MG PO (12:07)
[2018-08-25] MEDS ORDERED: NEXIUM40 MG PO (12:07)
[2018-08-25] MEDS ORDERED: BYETTA PEN 11 PENIN2 SUBQ (12:08)
[2018-08-25 12:51] LABS: ABSOLUTE BASOPHILS 0.1 thou/uL (0.0-0.2); ABSOLUTE EOSINOPHILS 0.1 thou/uL (0.0-0.7); ABSOLUTE LYMPHOCYTES 0.9 thou/uL (0.8-5.3); ABSOLUTE MONOCYTES 0.4 thou/uL (0.0-1.2); ABSOLUTE NEUTROPHILS 6.4 thou/uL (1.6-8.1); BASOPHILS 0.7 %; EOSINOPHILS 0.6 %; HEMATOCRIT 40.4 % (37.0-47.0); HEMOGLOBIN 13.8 gm/dL (12.0-15.0); LYMPHOCYTES 11.3 %; MCH 30.4 pg (26.0-34.0); MCHC 34.2 g/dL (28.0-37.0); MCV 88.9 fL (80.0-100.0); MONOCYTES 5.6 %; MPV 8.2 fl. (7.2-11.1); NUCLEATED RBCS 0 /100WBC; PLATELET COUNT* 199 thou/uL (150-400); POLYS 81.8 %; RBC 4.54 mil/uL (4.20-5.00); RDW-CV 14.3 % (10.5-14.5); WBC 7.9 thou/uL (4.0-11.0)
[2018-08-25 13:01] LABS: APTT 22.1 Seconds (25.0-31.3); INR 1.1; PROTIME 10.9 Seconds (9.20-11.50)
[2018-08-25 13:36] LABS: ANION GAP 11 mmol/L (7-16); BUN 18 mg/dL (7-18); CALCIUM 9.7 mg/dL (8.5-10.1); CHLORIDE 102 mmol/L (98-107); CO2 26 mmol/L (21-32); CREATININE 1.2 mg/dL (0.6-1.3); GLUCOSE 187 mg/dL (70-99); POTASSIUM 3.5 mmol/L (3.5-5.1); SODIUM 139 mmol/L (136-145); TROPONIN-I LEVEL <0.06 ng/mL (<0.06)
[2018-08-25 13:44] LABS: ALBUMIN 3.5 g/dL (3.4-5.0); ALKALINE PHOSPHATASE 113 U/L (46-116); LIPASE 58 U/L (73-393); SGOT 16 U/L (15-37); SGPT 26 U/L (30-65); TOTAL BILIRUBIN 0.6 mg/dL (<0.1-1.0); TOTAL PROTEIN 7.2 g/dL (6.4-8.2)
[2018-08-25 13:57] LABS: URINE BILIRUBIN NEGATIVE (Negative); URINE BLOOD NEGATIVE (Negative); URINE CLARITY CLEAR; URINE COLOR YELLOW; URINE GLUCOSE-RANDOM NEGATIVE (Negative); URINE KETONES NEGATIVE (Negative); URINE LEUKOCYTES-REFLEX NEGATIVE (Negative); URINE NITRITE-REFLEX NEGATIVE (Negative); URINE PROTEIN TRACE (Negative); URINE UROBILINOGEN 0.2 E.U./dl (0.2-1.0)
[2018-08-25 15:37] LABS: INFLUENZA A ANTIGEN None Detected (None Detect); INFLUENZA B ANTIGEN None Detected (None Detect)
[2018-08-25 16:01] VITALS: BP 169/89
[2018-08-25 16:15] VITALS: BP 181/81
[2018-08-25 19:45] VITALS: BP 151/77
[2018-08-26] VITALS (9 sets, daily range): BP systolic 120–153; BP diastolic 54–80
[2018-08-26 05:06] LABS: HEMATOCRIT 33.9 % (37.0-47.0); MCH 30.6 pg (26.0-34.0); MCHC 34.5 g/dL (28.0-37.0); MCV 88.8 fL (80.0-100.0); MPV 8.3 fl. (7.2-11.1); RBC 3.82 mil/uL (4.20-5.00); RDW-CV 14.4 % (10.5-14.5); WBC 5.7 thou/uL (4.0-11.0)
[2018-08-26 05:17] LABS: HEMOGLOBIN 11.7 gm/dL (12.0-15.0)
[2018-08-26 05:27] LABS: ANION GAP 6 mmol/L (7-16); BUN 15 mg/dL (7-18); CALCIUM 8.5 mg/dL (8.5-10.1); CHLORIDE 107 mmol/L (98-107); CO2 28 mmol/L (21-32); CREATININE 0.9 mg/dL (0.6-1.3); GLUCOSE 151 mg/dL (70-99); MAGNESIUM 1.7 mg/dL (1.8-2.4); SODIUM 141 mmol/L (136-145); TROPONIN-I LEVEL <0.06 ng/mL (<0.06)
[2018-08-26 05:30] LABS: CHOLESTEROL 192 mg/dL (<200); HDL CHOLESTEROL 23 mg/dL (>40); LDL CHOLESTEROL 111 mg/dL (<100); TC:HDL 8.3 Ratio (Not establshd); TRIGLYCERIDE 290 mg/dL (<150); VLDL 58 mg/dL (<40)
[2018-08-26 05:31] LABS: SERUM ASSESSMENT CLEAR
--- NOTE | 2018-08-26 15:04 | EKG ---
[place] [address] ELECTROCARDIOGRAM REPORT Name: KWADWOANY SHARA Room: [address] ADM IN M.R.#: [id number] Admission: 08/25/18 Attend Phys: Luis Jaquez, Discharge: Date of : 38 Report #: [id number] THIS REPORT FOR: //name// [facility] ED Test Date: 2018-08-25 Test Time: 12:23:06 Pat Name: ANY BURKETT Department: Room: [facility] Gender: F Senior Visual Designer: Vivek MCLEOD : 1940 Requested By: Crystal Stapleton Order Number: [id number] MD: Lamont Magallanes Measurements Intervals [place] Rate: 84 P: 26 [place]: 131 QRS: -51 QRSD: 108 T: 31 QT: 403 QTc: 477 Interpretive Statements Sinus rhythm Left anterior fascicular block Abnormal R-wave progression, late transition Baseline wander in lead(s) I,II,aVR Compared to ECG 07/02/2018 12:53:08 Early repolarization no longer present Electronically Signed On 08-26-2018 15:04:23 CDT by Lamont Magallanes [email or web address] <ELECTRONICALLY SIGNED> By: Lamont Magallanes MD, FACC 08/26/18 1504 1223 1223 Lamont Magallanes MD, FACC /EPI
--- NOTE | 2018-08-26 15:08 | EKG ---
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1940 Requested By: Luis Jaquez Order Number: [id number] MD: Lamont Magallanes Measurements Intervals [place] Rate: 86 P: 27 NM: 155 QRS: -48 QRSD: 106 T: 32 QT: 387 QTc: 463 Interpretive Statements Sinus rhythm Left anterior fascicular block Abnormal R-wave progression, early transition Minimal ST elevation, lateral leads Compared to ECG 07/02/2018 12:53:08 ST (T wave) deviation now present Early repolarization no longer present Electronically Signed On 08-26-2018 15:07:59 CDT by Lamont Magallanes [email or web address] <ELECTRONICALLY SIGNED> By: Lamont Magallanes MD, FAC 08/26/18 1507 [id number] Lamont Magallanes MD, [facility] /EPI
[2018-08-26 16:11] LABS: MAGNESIUM 1.8 mg/dL (1.8-2.4)
[2018-08-26 16:18] LABS: POTASSIUM 4.9 mmol/L (3.5-5.1)
[2018-08-27] VITALS: BP 147/70
[2018-08-27 04:00] VITALS: BP 141/67
[2018-08-27 04:30] LABS: HEMATOCRIT 34.3 % (37.0-47.0); HEMOGLOBIN 11.8 gm/dL (12.0-15.0); MCH 30.7 pg (26.0-34.0); MCHC 34.3 g/dL (28.0-37.0); MCV 89.5 fL (80.0-100.0); MPV 8.3 fl. (7.2-11.1); RBC 3.83 mil/uL (4.20-5.00); RDW-CV 14.1 % (10.5-14.5); WBC 5.5 thou/uL (4.0-11.0)
[2018-08-27 05:10] LABS: ANION GAP 8 mmol/L (7-16); BUN 12 mg/dL (7-18); CALCIUM 8.7 mg/dL (8.5-10.1); CHLORIDE 107 mmol/L (98-107); CO2 26 mmol/L (21-32); CREATININE 0.8 mg/dL (0.6-1.3); GLUCOSE 178 mg/dL (70-99); MAGNESIUM 1.9 mg/dL (1.8-2.4); SODIUM 141 mmol/L (136-145); TROPONIN-I LEVEL <0.06 ng/mL (<0.06)
[2018-08-27 05:23] LABS: POTASSIUM 3.8 mmol/L (3.5-5.1)
[2018-08-27 08:00] VITALS: BP 145/68
--- NOTE | 2018-08-27 09:10 | CON ---
[address] [address] CONSULTATION Name: ANY BURKETT Room: [address] IN M.R.#: [id number] Admission: 08/25/18 Attend Phys: Luis Jaquez, Discharge: Date of : 38 Report #: [id number] THIS REPORT FOR: //name// CC: Logan Jaquez CARDIOLOGY CONSULTATION INDICATION: Abdominal chest pain as well as syncope. HISTORY OF PRESENT ILLNESS: The patient is a 78-year-old white female with cardiac risk factors including hypertension, dyslipidemia and type 2 diabetes mellitus. She was admitted to the hospital with midepigastric discomfort radiating to the abdomen and back, described as a pressure that has been fairly constant. She is ruled out for myocardial infarction by serial enzymes. EKG shows sinus rhythm with left anterior fascicular block, but no acute ST or T-wave abnormalities noted. She did undergo myocardial perfusion imaging stress testing last month that showed normal LV systolic function and no evidence of infarct or ischemia. Her pain sounds somewhat gastrointestinal in nature as it is described as a burning discomfort on occasion. She has been on and off of proton pump inhibitor with no significant relief recently. The pain is not significantly worse with activity. There is no associated diaphoresis or shortness of breath. She does report episodes of nausea and vomiting intermittently. This has been going on for some time. She is followed by Gastroenterology. She also notes that she has been having syncopal episodes for many years. These have increased in frequency since April. Her symptoms sound somewhat orthostatic in nature. She says she has learned to get up slowly and stand before she starts walking. Despite these precautions, she continues to have intermittent syncopal episodes. She does not recall ever having any type of prolonged telemetry monitoring. She does report a tilt table test remotely. She states that the test was positive to some extent. I do not have those results. She has mild symptoms of orthostasis on occasion. She is without other cardiac complaint at this time. PAST MEDICAL HISTORY: 1. Hypertension. 2. Dyslipidemia. 3. Type 2 diabetes mellitus. 4. GERD. 5. Hiatal hernia. 6. Orthostatic hypotension. 7. Hypothyroidism. PAST SURGICAL HISTORY: [place] [address] CONSULTATION Name: ANY BURKETT Room: [address]#: [id number] Admission: 08/25/18 Attend Phys: Luis Jaquez, Discharge: Date of : 38 Report #: [id number] 1. Tonsillectomy. 2. Tubal ligation. 3. Hysterectomy with bilateral salpingo-oophorectomy. 4. Cholecystectomy. 5. Appendectomy. 6. Left knee surgery. 7. Eye implants. FAMILY HISTORY: Noncontributory. SOCIAL HISTORY: The patient is a lifelong nonsmoker. She does not drink alcohol. PHYSICAL EXAMINATION: VITAL SIGNS: Blood pressure 153/80, pulse 90 and regular. GENERAL: This is a thin, pleasant, elderly female in no distress. Mood and affect appropriate. HEENT: The patient is wearing glasses. Extraocular muscles intact. Mucous membranes are moist. Dentition poor. NECK: Shows no jugular venous distention. There are no carotid bruits. CHEST: Reveals clear lung cardozo without wheezes or rales. CARDIAC: Reveals regular rhythm with normal S1 and S2. I do not appreciate gallop or murmur. ABDOMEN: Reveals normal bowel sounds. The abdomen is soft and nontender. EXTREMITIES: Shows no edema. Peripheral pulses are 2+ and easily palpable. Chest x-ray shows some mild atelectasis without acute cardiopulmonary abnormality. LABORATORY DATA: EKG shows sinus rhythm with left anterior fascicular block. No acute ST or T-wave abnormalities noted. Labs are reviewed. Sodium 141, potassium 3.0, chloride 107, bicarb 28, BUN 15, creatinine 0.9, serum glucose 151. AST 16, lipase 58, total bilirubin 0.6, calcium 8.5, magnesium 1.7, alkaline phosphatase 113, ALT 26, total protein 7.2, albumin 3.5, EGFR 60. CPK 47. Troponins less than 0.06 on three occasions. NT-proBNP 37, cholesterol 192, triglycerides 290, HDL 23, LDL 111. Coags within normal limits. White blood cell count 5.7; hemoglobin 11.7; platelet count 176,000. IMPRESSION AND RECOMMENDATIONS: 1. Chest discomfort, atypical for cardiac. The pain is prolonged in nature without associated shortness of breath or diaphoresis. EKG is unremarkable. Troponins are unremarkable x 3 sets. Stress testing last month was unremarkable. I suspect this is gastrointestinal in nature. Would recommend considering Protonix and Gastroenterology followup. 2. Syncope, etiology is not clear. The patient has been having multiple episodes. I suspect in part this is due to orthostasis. I have asked that the [address] [address] CONSULTATION Name: ANY BURKETT Room: [address] IN M.R.#: [id number] Admission: 08/25/18 Attend Phys: Luis Jaquez, Discharge: Date of : 38 Report #: [id number] nursing staff obtain orthostatic blood pressures. 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 I would recommend 30-day event monitor on discharge. 3. Hypertension. Blood pressure mildly elevated at present. We will make adjustments to medications for improved blood pressure control. 4. Hyperlipidemia. Low-density lipoprotein cholesterol above goal. Would recommend statin agent. We will start moderate dose atorvastatin at this time. 5. Gastroesophageal reflux. Recommend Protonix 40 mg daily. 6. Hypothyroidism. Continue current replacement. Her thyroid-stimulating hormone was normal last month. <ELECTRONICALLY SIGNED> By: Lamont Magallanes MD, FACC 08/27/18 0910 [id number] Magallanes MD, FACC /nt
[2018-08-27 11:46] VITALS: BP 152/84
[2018-08-27] MEDS ORDERED: COZAAR 25 MG TA25 M1 PO (13:05)
[2018-08-27] MEDS ORDERED: AMLODIPINE BESY10 MG PO (13:06)
[2018-08-27 13:12] VITALS: BP 152/84
== END 2018-08-27 14:25 | disposition home or self-care (01) | DRG 392 ==
LOC: M.ERS 11:47 → M.2W 15:21 → M.TBA-ER 15:21 → M.2W 16:28
PROVIDERS: Nurse Practitioner Family; ADMIT Family Medicine
DX: K21.9 Gastro-esophageal reflux disease without esophagitis (principal); E86.0 Dehydration; R10.9 Unspecified abdominal pain; E11.9 Type 2 diabetes mellitus without complications; E03.9 Hypothyroidism, unspecified; E78.5 Hyperlipidemia, unspecified; I10 Essential (primary) hypertension; K44.9 Diaphragmatic hernia without obstruction or gangrene; E87.6 Hypokalemia; J44.9 Chronic obstructive pulmonary disease, unspecified; Z90.710 Acquired absence of both cervix and uterus; Z90.49 Acquired absence of other specified parts of digestive tract; Z88.2 Allergy status to sulfonamides; Z88.8 Allergy status to other drugs, medicaments and biological substances; Z88.6 Allergy status to analgesic agent; Z88.5 Allergy status to narcotic agent; Z91.013 Allergy to seafood; Z90.722 Acquired absence of ovaries, bilateral; Z91.19 Patient's noncompliance with other medical treatment and regimen; Z98.1 Arthrodesis status

== ENCOUNTER 2018-09-11 13:01 | Emergency (ER) | payer OTHER, MEDICAID ==
[~2018-09-11] VITALS: Ht 160 cm; Wt 67.1 kg
[~2018-09-11 13:01] MED LIST changes: +AMLODIPINE BESY10 MG PO; +BYETTA PEN 11 PENIN2 SUBQ; +COZAAR 25 MG TA25 M1 PO; +EFFER-K 10 MEQ10 ME1 PO
[2018-09-11] MEDS ORDERED: HYDRALAZINE 2525 MG PO (13:21)
[2018-09-11 13:45] LABS: ABSOLUTE BASOPHILS 0.1 thou/uL (0.0-0.2); ABSOLUTE EOSINOPHILS 0.3 thou/uL (0.0-0.7); ABSOLUTE LYMPHOCYTES 1.4 thou/uL (0.8-5.3); ABSOLUTE MONOCYTES 0.5 thou/uL (0.0-1.2); ABSOLUTE NEUTROPHILS 4.8 thou/uL (1.6-8.1); BASOPHILS 0.7 %; EOSINOPHILS 4.9 %; HEMOGLOBIN 12.8 gm/dL (12.0-15.0); LYMPHOCYTES 20.3 %; MCHC 33.7 g/dL (28.0-37.0); MCV 88.9 fL (80.0-100.0); MONOCYTES 6.3 %; MPV 8.1 fl. (7.2-11.1); NUCLEATED RBCS 0 /100WBC; PLATELET COUNT* 234 thou/uL (150-400); POLYS 67.8 %; RBC 4.28 mil/uL (4.20-5.00); RDW-CV 13.5 % (10.5-14.5); WBC 7.1 thou/uL (4.0-11.0)
[2018-09-11 15:15] LABS: ALBUMIN 3.2 g/dL (3.4-5.0); ALKALINE PHOSPHATASE 104 U/L (46-116); ANION GAP 11 mmol/L (7-16); BUN 18 mg/dL (7-18); CALCIUM 8.9 mg/dL (8.5-10.1); CHLORIDE 105 mmol/L (98-107); CO2 26 mmol/L (21-32); GLUCOSE 238 mg/dL (70-99); LIPASE 64 U/L (73-393); NT-PRO BRAIN NAT PEPTIDE 30 pg/mL (<300); POTASSIUM 3.3 mmol/L (3.5-5.1); SGOT 15 U/L (15-37); SGPT 21 U/L (30-65); SODIUM 142 mmol/L (136-145); TOTAL BILIRUBIN 0.4 mg/dL (<0.1-1.0); TROPONIN-I LEVEL <0.06 ng/mL (<0.06)
[2018-09-11] MEDS ORDERED: TRAMADOL 50 MG50 MG PO (16:26)
[2018-09-11 16:40] VITALS: BP 139/78
--- NOTE | 2018-09-11 17:11 | EKG ---
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1940 Requested By: Jonel Arita Order Number: [id number] MD: Lamont Magallanes Measurements Intervals [place] Rate: 102 P: 29 MN: 146 QRS: -69 QRSD: 104 T: 51 QT: 361 QTc: 471 Interpretive Statements Sinus tachycardia Left anterior fascicular block Compared to ECG 08/26/2018 07:59:38 Sinus rhythm no longer present ST (T wave) deviation no longer present Electronically Signed On 09-11-2018 17:11:00 CDT by Lamont Magallanes [email or web address] <ELECTRONICALLY SIGNED> By: Lamont Magallanes MD, FAC 09/11/18 1711 1308 1308 Lamont Magallanes MD, [facility] /EPI
== END 2018-09-11 16:53 | disposition home or self-care (01) ==
LOC: M.ERS 13:01
PROVIDERS: Emergency Medicine
DX: K22.4 Dyskinesia of esophagus (principal); E11.9 Type 2 diabetes mellitus without complications; Z98.890 Other specified postprocedural states; Z90.49 Acquired absence of other specified parts of digestive tract; Z90.710 Acquired absence of both cervix and uterus; Z79.4 Long term (current) use of insulin; Z88.6 Allergy status to analgesic agent; Z91.013 Allergy to seafood; Z88.5 Allergy status to narcotic agent; Z88.0 Allergy status to penicillin; Z88.2 Allergy status to sulfonamides; Z88.8 Allergy status to other drugs, medicaments and biological substances

== ENCOUNTER 2018-11-07 16:40 | Emergency (ER) | payer OTHER, MEDICAID ==
[~2018-11-07] VITALS: Ht 162.6 cm; Wt 74.8 kg
[~2018-11-07 16:40] MED LIST changes: +TRAMADOL 50 MG50 MG PO
[2018-11-07] MEDS ORDERED: NORCO 10-325 T1 EACH PO (16:50)
[2018-11-07] MEDS ORDERED: PROTONIX40 M1 PO (16:50)
[2018-11-07 17:01] LABS: ABSOLUTE EOSINOPHILS 0.1 thou/uL (0.0-0.7); ABSOLUTE LYMPHOCYTES 1.8 thou/uL (0.8-5.3); ABSOLUTE MONOCYTES 0.6 thou/uL (0.0-1.2); ABSOLUTE NEUTROPHILS 5.3 thou/uL (1.6-8.1); BASOPHILS 0.6 %; EOSINOPHILS 1.9 %; HEMATOCRIT 42.8 % (37.0-47.0); HEMOGLOBIN 14.5 gm/dL (12.0-15.0); LYMPHOCYTES 22.9 %; MCH 30.9 pg (26.0-34.0); MCHC 33.9 g/dL (28.0-37.0); MCV 91.2 fL (80.0-100.0); MONOCYTES 7.1 %; MPV 8.2 fl. (7.2-11.1); NUCLEATED RBCS 0 /100WBC; PLATELET COUNT* 267 thou/uL (150-400); POLYS 67.5 %; RBC 4.69 mil/uL (4.20-5.00); RDW-CV 13.8 % (10.5-14.5); WBC 7.9 thou/uL (4.0-11.0)
[2018-11-07 17:12] LABS: APTT 20.3 Seconds (25.0-31.3); PROTIME 10.1 Seconds (9.20-11.50)
[2018-11-07 17:28] LABS: ALBUMIN 3.7 g/dL (3.4-5.0); ALKALINE PHOSPHATASE 95 U/L (46-116); ANION GAP 14 mmol/L (7-16); CALCIUM 9.8 mg/dL (8.5-10.1); CHLORIDE 101 mmol/L (98-107); CO2 23 mmol/L (21-32); CREATININE 1.5 mg/dL (0.6-1.3); GLUCOSE 353 mg/dL (70-99); LIPASE 72 U/L (73-393); POTASSIUM 4.3 mmol/L (3.5-5.1); SGOT 19 U/L (15-37); SGPT 31 U/L (30-65); SODIUM 138 mmol/L (136-145); TOTAL BILIRUBIN 0.3 mg/dL (<0.1-1.0); TOTAL PROTEIN 7.1 g/dL (6.4-8.2); TROPONIN-I LEVEL <0.06 ng/mL (<0.06)
[2018-11-07 17:36] LABS: BUN 21 mg/dL (7-18)
[2018-11-07] MEDS ORDERED: NORCO 5-325 TA1 EACH PO (18:40)
[2018-11-07 18:50] VITALS: BP 145/89
--- NOTE | 2018-11-08 17:36 | EKG ---
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 : 1940 Requested By: John Pitts Order Number: [id number] MD: Lamont Magallanes Measurements Intervals [place] Rate: 106 P: 4 UT: 149 QRS: -73 QRSD: 94 T: 26 QT: 341 QTc: 453 Interpretive Statements Sinus tachycardia Inferior infarct, old Compared to ECG 09/11/2018 13:08:25 Myocardial infarct finding now present Left anterior fascicular block no longer present Electronically Signed On 11-08-2018 17:36:11 CDT by Lamont Magallanes [email or web address] <ELECTRONICALLY SIGNED> By: Lamont Magallanes MD, [facility] 11/08/18 1736 1645 164 Lamont Magallanes MD, [facility] /EPI
== END 2018-11-07 18:50 | disposition home or self-care (01) ==
LOC: M.ERS 16:40
PROVIDERS: Family Medicine
DX: S00.81XA Abrasion of other part of head, initial encounter (principal); S80.212A Abrasion, left knee, initial encounter; S70.212A Abrasion, left hip, initial encounter; R55 Syncope and collapse; E11.9 Type 2 diabetes mellitus without complications; Z91.013 Allergy to seafood; Z88.6 Allergy status to analgesic agent; Z88.8 Allergy status to other drugs, medicaments and biological substances; Z88.5 Allergy status to narcotic agent; Z88.1 Allergy status to other antibiotic agents; Z88.0 Allergy status to penicillin; Z88.2 Allergy status to sulfonamides; Z90.89 Acquired absence of other organs; Z90.710 Acquired absence of both cervix and uterus; Z90.49 Acquired absence of other specified parts of digestive tract; Z79.4 Long term (current) use of insulin; W01.198A Fall on same level from slipping, tripping and stumbling with subsequent striking against other object, initial encounter; Y92.89 Other specified places as the place of occurrence of the external cause; Y93.89 Activity, other specified; Y99.8 Other external cause status